=== PATIENT | male | born 1940 | race Caucasian/White ===

== ENCOUNTER 2017-03-21 17:22 | Inpatient (IN) | payer MEDICARE ==
[~2017-03-21] VITALS: Ht 175.3 cm; Wt 76.8 kg
[2017-03-21] MEDS ORDERED: MEMANTINE HCL10 MG PO (19:09)
[2017-03-21] MEDS ORDERED: LIPITOR40 MG PO (19:10)
[2017-03-21] MEDS ORDERED: SYNTHROID75 MCG PO (19:11)
[2017-03-21] MEDS ORDERED: OXCARBAZEPINE300 MG PO (19:13)
[2017-03-21] MEDS ORDERED: CITALOPRAM HBR20 MG PO (19:14)
[2017-03-21] MEDS ORDERED: ARICEPT10 MG PO (19:14)
--- NOTE | 2017-03-21 23:46 | NUR ---
PATIENT ARRIVED TO THE FLOOR AROUND 2330. PATIENT IS A POOR HISTORIAN. PATIENT IS VERY PAINFUL WITH MOVEMENT. PATIENT DENIES ANY PAIN AT THIS TIME. PATIENTS BED ALARM IS ON FOR SAFETY. PATIENT ORIENTED TOP FLOOR AND ROOM. ED PACKET GIVEN.
--- NOTE | 2017-03-22 01:17 | NUR ---
PT IS SLEEPING AT THIS TIME.
--- NOTE | 2017-03-22 04:04 | NUR ---
PT IS SLEEPING AT THIS TIME.
--- NOTE | 2017-03-22 05:07 | NUR ---
PT HAS BEEN SLEEPING SINCE ARRIVAL ON THE FLOOR. PT HAS NOT NEEDED ANY PAIN MEDICATION SINCE ARRIVAL ON THE FLOOR. IV NS AT 75ML/HR IS RUNNING. PT CANNOT MOVE ON HIS OWN AND NEEDS TO BE RE-ADJUSTED IN BED AND TURNED MUCH HE CAN TOLERATE.
--- NOTE | 2017-03-22 07:31 | NUR ---
RECIVEVED BEDSIDE REPORT FROM JAGDISH MARIE. PT SLEEPING, BREATHING EVEN AND UNLABORED.
--- NOTE | 2017-03-22 08:57 | NUR ---
PT AWAKE AND ALERT IN BED. ATE SMALL AMT OF BREAKFAST. PT STATES PAIN WITH MOVEMENT IN RIGHT HIP. HE IS ABLE TO TELL ME HE TRIPED AND HURT HIS HIP A DAY OR TWO AGO. NO COMPLAINTS OF PAIN OR NAUSEA AT THIS TIME.
--- NOTE | 2017-03-22 09:27 | NUR ---
ASSISTED PHYSICAL THERAPIST WITH ATTEMPTING TO STAND PATIENT AT THE BEDSIDE. UNSUCCESFUL ATTEMPT. PT DOES NOT TOLERATE WEIGHT BEARING TO RIGHT HIP. TURN Q2 INITIATED BY FESTUS DUBON.
--- NOTE | 2017-03-22 11:06 | NUR ---
PT IS SLEEPING IN CHAIR, BREATHING EVEN AND UNLABORED. DAUGHTER AT BEDSIDE.
--- NOTE | 2017-03-22 16:21 | NUR ---
REPOSITIONED PT IN BED, ASSISTED WITH ORAL CARE. PT IS ALERT AT THIS TIME.
--- NOTE | 2017-03-22 17:22 | NUR ---
PT UNABLE TO BEAR WEIGHT IN PHYSICAL THERAPY. PT IS FÁTIMA LIFT. PT NOT C/O PAIN, PRN PAIN MEDS X1. PT TOLERATING SMALL MEALS WELL. PT CONFUSED, FAMILY STATES MUCH IMPROVED SINCE LAST NIGHT. PT ALERT AND ORIENTANTED TO SOME RECENT EVENTS, KNOWS HE TRIPPED AND FELL, AND IS AT A CARE FACILITY. PT IS PLESANT AND COOPERATIVE WITH CARES.
--- NOTE | 2017-03-22 20:26 | NUR ---
IN TO SEE PT, PT AWAKE AND PICKING AT HIS CHAMORRO. PT REASSURED REGARDING CHAMORRO PLACEMENT. PT WATCHING TV. IV INTACT AND INFUSING. PT STATES HE HIS HUNGRY AND WOULD LIKE SOMETHING SOFT. PT STATES THAT HIS PAIN IS"MUCH BETTER" NOW. PUDDING GIVEN. CALL LIGHT IN PLACE.
--- NOTE | 2017-03-22 20:45 | NUR ---
IN TO SEE PT, IV IN R AC DC'D BY PT. IVF STOPPED AND DRESSING APPLIED. CALL LIGHT WITHIN REACH.
--- NOTE | 2017-03-22 23:42 | NUR ---
IN TO CHECK ON PT, PT HAS IV TUBING IN HAND, BLANKETS OFF. PT CONFUSED ABOUT ABOUT WHERE TO PLACE IV TUBING. RAMÓN APPLIED TO IV SITE. PT REORIENTED ABOUT NEED FOR IV. PT COVERED AND CALL LIGHT WITHIN PLACE.
--- NOTE | 2017-03-23 01:22 | NUR ---
IN TO CHECK ON PT, PT APPEARS TO BE RESTING, LIGHTS ON, IV INTACT AND INFUSING, CALL LIGHT WITHIN REACH.
--- NOTE | 2017-03-23 02:48 | NUR ---
IN TO SEE PT, PT AWAKE WATCHING TV. REQUEST GOWN, GOWN GIVEN. ASSESSED FOR PAIN, PT STATES HE IS NOT HAVING ANY PAIN AT THIS TIME. CHAMORRO DRAINED. IV INTACT AND INFUSING. NO FURTHER NEEDS AT THIS TIME, CALL LIGHT WITHIN REACH.
--- NOTE | 2017-03-23 03:40 | NUR ---
IN TO CHECK ON PT, IVF REPLACED, IV INTACT AND INFUSING. PT AWAKE AND WATCHING TV. WATER GIVEN. CALL LIGHT WITHIN REACH.
--- NOTE | 2017-03-23 04:57 | NUR ---
PT HAS RESTED ON AND OFF THROUGH OUT THE NIGHT.PT HAS BEEN PLEASENTLY CONFUSED, BUT EASILY REDIRECTED. INITIAL IV SITE DC'D BY PT IN THE BEGINNING OF SHIFT, NEW SITE PLACED IN THE L FORARM. NO C/O PAIN DURING THE SHIFT. PT IS UNABLE TO BEAR WEIGHT AND IS A FÁTIMA LIFT.
--- NOTE | 2017-03-23 07:35 | NUR ---
RECIEVED BEDSIDE REPORT FROM JAGDISH EARLY AND JAVI RN. PT AWAKE AND ALERT IN BED. PT REPOSITIONED. IV FLUIDS RUNNING.
--- NOTE | 2017-03-23 08:41 | NUR ---
2 person assist with pramod to comode then to chair. sitting up eating breakfast with call button in reach. chair alarm on.
--- NOTE | 2017-03-23 09:05 | NUR ---
PT HOYERED TO BSC AND CHAIR. PT TOLERATED WELL. PT EATING BREAKFAST, EATING WELL AFTER REDIRECTION. PT STATED HE "HAD A ROUGH NIGHT", WAKING UP FREQUENTLY.
--- NOTE | 2017-03-23 11:11 | NUR ---
PT SNOOZING IN CHAIR. STATES NO PAIN AT THIS TIME.
--- NOTE | 2017-03-23 11:35 | NUR ---
PT SITTING IN CHAIR-WELCOMED ME IN TO HIS RM. HE SAID THAT PAIN HAS NOT BAD YESTERDAY, AND THEN BEGAN TO RAMBLE. OFTEN HIS SENTENCES DID NOT MAKE MUCH SENSE, BUT SEEMED CONTENT. HE MENTIONED THAT THE NURSES WERE TAKING GOOD CARE OF HIM. PT STATED THAT HE HAS BEEN PRAYING A LOT LATELY, BUT DECLINED TO HAVE ME PRAY FOR HIM. WILL FOLLOW NEEDED
--- NOTE | 2017-03-23 12:30 | NUR ---
adjusted patient in chair sitting up eating lunch and drinking an ensure. call button in reach. chair alarm on.
--- NOTE | 2017-03-23 12:54 | NUR ---
PT TRANSFERED BACK TO BED. VOIDED 225ML IN URINAL. PT REQUESTED PAIN PILL, 1 NORCO GIVEN.
--- NOTE | 2017-03-23 14:15 | NUR ---
2 person assist to bed from chair with pramod lift. patient turned on right bed alarm on. call button in reach.
--- NOTE | 2017-03-23 14:17 | NUR ---
PT TRANSFERED BACK TO BED, TOLERATED WELL. PT FÁTIMA LIFT.
--- NOTE | 2017-03-23 14:35 | NUR ---
CALLED PT SON ARCHIE AT [phone], NO ANSWER, MESSAGE LEFT
[2017-03-23] MEDS ORDERED: MULTI VITAMIN1 EACH PO (17:05)
[2017-03-23] MEDS ORDERED: ASPIR 8181 MG PO (17:05)
--- NOTE | 2017-03-23 17:06 | NUR ---
MED REC COMPLETE--PER FAMILY
--- NOTE | 2017-03-23 17:29 | NUR ---
PT UP TO BEDSIDE COMMODE, NO BM THIS SHIFT. CHAMORRO DRAINING WELL. PT FÁTIMA LIFT, UP TO CHAIR THIS SHIFT. PT STATES PAIN IS "MUCH BETTER" THIS SHIFT. PRN PAIN MEDS X2, EFFECTIVE. PT CONFUSED AND FORGETFUL, EASILY REDIRECTS. NO BRUISING ON R HIP, SKIN INTACT.
--- NOTE | 2017-03-23 21:13 | NUR ---
PT ASSESSMENT COMPLETE. PT CONFUSED, PLEASANT AND COOPERATIVE. FAMILY FRIEND VISITING PT. IV FLUIDS INFUSING WITHOUT DIFFICULTY. PT STATES "MY PAIN IS GOOD, THEY GAVE ME SOMETHING EARLIER". NO BRUISING NOTED TO RIGHT HIP. PT ON ROOM AIR, DENIES ANY SOB AT THIS TIME. CALL LIGHT WITHIN REACH. PT DENIES ANY FURTHER NEEDS AT THIS TIME.
--- NOTE | 2017-03-23 23:02 | NUR ---
SON HERE TO VISIT, DISCUSSED SIGNING THE CONSENT FOR SURGERY TOMORROW PT NOT ALERT AND ORIENTED ENOUGH TO MAKE THAT DECISION. SON DOES NOT WANT TO SIGN UNTIL HE FINDS OUT MORE INFORMATION ON PT INSURANCE THROUGH [employer], SON WILL CALL HER IN THE AM. SON STATES HE WAS UNAWARE THAT SURGERY WAS BEING SCHEDULED.
--- NOTE | 2017-03-23 23:30 | NUR ---
PT SLEEPING, RR EVEN AND UNLABORED. IV FLUIDS INFUSING WITHOUT DIFFICULTY. PT APPEARS COMFORTABLE AT THIS TIME. CALL LIGHT WITHIN REACH.
--- NOTE | 2017-03-24 02:59 | NUR ---
PT PULLED OUT CHAMORRO CATHETER WITH BALLOON FILLED. BLOOD IN URINE, BLOOD OOZING FROM PENIS. PT HAD BLOOD ALL OVER HANDS AND GOWN. CLEANED PT UP. PT CONFUSED, ORIENTED TO SELF ONLY. REPOSITIONED PT. IV FLUIDS INFUSING WITHOUT DIFFICULTY. ATTENDS IN PLACE. WILL MONITOR URINE OUTPUT CLOSELY. PT C/O PAIN, IV DILAUDID GIVEN PT NPO FOR SURGERY. CURTAINS OPEN FOR CLOSE MONITORING, BED ALARM IN PLACE. CALL LIGHT WITHIN REACH.
--- NOTE | 2017-03-24 07:04 | CONS ---
[facility] [address] [place], [place] [address] Signed HISTORY OF PRESENT ILLNESS: Mr. Benjamin is a 76-year-old white male who apparently suffers from fairly significant dementia. He presented to the emergency room over the weekend having had a fall a day or two earlier. Because of ongoing pain and difficulty ambulating, he was examined. He was thought to have a nondisplaced basicervical fracture of the right hip. He was admitted to the hospitalist service because of significant hyponatremia. This has now been rectified and Orthopedic consultation was requested. PHYSICAL EXAMINATION: GENERAL: He is a significantly confused but otherwise very pleasant elderly gentleman in no acute distress. HEAD, EARS, EYES, NOSE, AND THROAT: Does not seem to reveal any evidence of craniofacial trauma. CHEST: Clear. He seems to have a regular heartbeat. EXTREMITIES: Examination of the right lower extremity reveals discomfort with attempts to move the right lower extremity and he localizes to the right groin. He has a positive Stinchfield maneuver. NEUROVASCULAR: Examination of the lower extremity seems unremarkable. X-RAYS: His x-rays and CT scan are reviewed. I am unable to appreciate that he has a basicervical fracture, although he does appear to have a valgus impacted subcapital fracture. I discussed with him that this is currently minimally displaced and is nicely impacted into valgus, but these frequently are not stable. I told him as such, our general recommendation is to stabilize these surgically. We have attempted to outline the potential risks and complications associated with this intervention, and he seems comfortable with proceeding. I have discussed this with Dr. Person who feels he should be ready to go by morning time. We will keep him n.p.o. after midnight and h old his Lovenox. I would also like to obtain an interview with his family member. My sense is that if he does not have a family member who has a POA, that should be put in other words as he clearly is significantly confused. Vahe Nash MD [facility] Electronically Signed By: VAHE NASH MD 03/24/17 0704 PATIENT NAME: JEAN-PIERRE BENJAMIN CONSULTATION DATE OF : 38 PHYSICIAN: VAHE NASH MD REPORT #: [id number] REPORT IS CONFIDENTIAL AND NOT TO BE RELEASED WITHOUT AUTHORIZATION [address] [place], [place] [address] Signed /[id number] Electronically Signed By: VAHE NASH MD 03/24/17 0704 PATIENT NAME: JEAN-PIERRE BENJAMIN CONSULTATION DATE OF : 38 PHYSICIAN: VAHE NASH MD REPORT #: [id number] REPORT IS CONFIDENTIAL AND NOT TO BE RELEASED WITHOUT AUTHORIZATION
--- NOTE | 2017-03-24 07:39 | NUR ---
CALL PLACED TO DR SCOTT AND RECIEVED ORDER TO REPLACE CHAMORRO CATH, DC DILAUDID, MORPHINE FOR PAIN. CHAMORRO CATHETER REPLACED AT THIS TIME, OBTAINED 1400ML RED/YELLOW URINE WITH CLOTS. MORPHINE 4MG IV GIVEN, PT CALMED DOWN AND IS RESTING QUIETLY AT THIS TIME.
--- NOTE | 2017-03-24 07:48 | NUR ---
RECIEVED BEDSIDE REPORT FROM JAGDISH MOY. PT AWAKE AND ALERT IN HIS BED, VERY FIDGETY AND ANXIOUS. REPORTED THAT HE HAD A ROUGH NIGHT. REPLACED CHAMORRO FOR 1400ML OUT. PT BECAME MUCH MORE RELAXED.
--- NOTE | 2017-03-24 08:05 | NUR ---
peterson cath care done. cleaned fingers and hands. washed face. oral care done patient very tender in the mouth. dentures out soaking in bathroom. will give full bed bath and linen change before surgery. patient resting in bed with eyes closed no other needs at this time. side rails up and bed down with alarm on.
--- NOTE | 2017-03-24 09:04 | NUR ---
OR CHARGE NURSE CALLED TO CONFIRM LOVENOX WAS HELD FOR PT. CONFIRMED IT WAS.
--- NOTE | 2017-03-24 10:34 | NUR ---
PT ROUSES TO ACTVITY, EASILY FALLS BACK TO SLEEP. IN NO APPEARNT DISTRESS.
--- NOTE | 2017-03-24 12:08 | NUR ---
PT RESTING IN BED. HE IS ALERT, NOT VERY ORIENTED, BUT VERY FRIENDLY. HE GAVE ME A BIG TOOTHLESS GRIN AND INVITED ME IN BY NAME. PT IS SCHEDULED FOR SURGERY @1400 HRS TODAY. WE SHOOK HANDS, WILL CONTINUE TO FOLLOW
--- NOTE | 2017-03-24 12:16 | NUR ---
CALLED AGAIN LEFT MESSAGE FOR SON TO CALL THERE AGAIN WAS NO ANSWER.
--- NOTE | 2017-03-24 12:32 | NUR ---
PT SON ARCHIE CALLED AND WAS CONCERNED ABOUT PT INSURANCE AND WHAT EXACTLY IT WOULD COVER. WERNER SAID THAT IT WOULD COVER THE EMERGENCY BUT THE OUTPT THINGS IT WOULD BE OUT OF NETWORK AND IT WON'T COVER THAT. LON ASK IS TO SEE IF THE PT HAS MEDICARE THAT WILL IRRIGATION SUPERVISOR AFTER THE WERNER. I TOLD HIM I WOULD CHECK INTO THIS FOR HIM, ALSO SEE IF WE COULD GET PT POSS SIGNED UP FOR MEDICAID PRESUMPTIVE CARE. ATTEMPTED TO CALL SAY FROM THAT DEPARTMENT AND MESSAGE LEFT FOR HER TO CALL ME.
--- NOTE | 2017-03-24 12:40 | NUR ---
SPOKE WITH SON/POA REGARDING SIGNING CONSENT FOR SURGERY. ARCHIE WILL BE IN TO SIGN CONSENT IN 15-20 MIN. HE IS STILL CONCERNED ABOUT INSURANCE AND BILLING.
--- NOTE | 2017-03-24 13:00 | NUR ---
CALLED AND SPOKE WITH DR SCOTT PT IS AGAIN TRYING TO PULL IV AND CHAMORRO CATHETER OUT. PT IS PLEASANT AND COOPERATIVE BUT VERY FORGETFUL AND FORGETS WHAT TUBING IS AND TRIES TO PULL OUT.RECIEVED ORDER TO USE SOFT WRIST RESTRAINTS FOR PT SAFETY. PLACED AT THIS TIME.
--- NOTE | 2017-03-24 13:05 | NUR ---
WALKED IN TO ROOM PATIENT PULLING ON CHAMORRO CATH. STAFF IN ROOM TO CLEAN UP. LINENS CHANGED PERICARE DONE. SHAVE.
--- NOTE | 2017-03-24 13:10 | NUR ---
SON IS HERE ADDRESS CONSENT FOR SURGERY. OR CREW HERE TO TAKE TO SURGERY.
--- NOTE | 2017-03-24 15:20 | NUR ---
03/24/17 1520 Brien Issa 1517: PT AWOKE AND STATES "IT HURTS". SEE EMAR.
--- NOTE | 2017-03-24 16:30 | NUR ---
RECIEVED BEDSIDE REPORT FROM SURGERY NURSE JAGDISH FRIED. PT RETURNED SLEEPING, WAKES TO TOUCH AND GOES BACK TO SLEEP. PT RECIEVING O2 VIA NASAL CANULA DUE TO LOW SATS ON ROOM AIR. TOLERATING WELL. PER DR SCOTT, KEEP PT IN SOFT RESTRAINTS DUE TO PULLING ON LINES AND PICKING AT DRESSING. PT TOLERATING WELL. DRESSING ON R HIP IS C/D/I WITH ICE PACK IN PLACE. PULSES INTACT.
--- NOTE | 2017-03-24 17:46 | NUR ---
PT WENT TO SURGERY TO REPAIR R HIP FRACTURE. PRIOR TO SURGERY, PT WAS VERY AGITATED, PULLING ON CHAMORRO AND PICKING AT IV. RESTRAINTS ORDERED PER DR. SCOTT TO PREVENT PULLING CHAMORRO OUT AGIAN. POST OP RESTRAINTS ORDERED WELL TO PREVENT PULLING ON LINES. HIP DRESSING C/D/I WITH ICE PACK IN PLACE. VSS.
--- NOTE | 2017-03-24 18:01 | NUR ---
PATIENT RESTING IN BED WITH EYES CLOSED.
--- NOTE | 2017-03-24 19:42 | NUR ---
RECEIVED REPORT FROM DAY SHIFT RN. PATIENT IS RESTING IN BED WTIH EYES CLOSED. PATIENT IS ON A PULSE OX AND READINGS ARE WNL. PATIENT IS ON 2L VIA NC. PATIENTS BREATHING IS EVEN AND UNLABORED. PATIENT HAS RESTRAINTS ON. RESTRAINT CHECK COMPLETED. CALL LIGHT IN REACH. BED ALARM IS ON.
--- NOTE | 2017-03-24 22:11 | NUR ---
PATIENT ASSESMENT COMPLETED. POST OP VITALS COMPLETED AND RECORDED. PATIENTS RESTRAINTS ASSESED AND RECORDED. PATIENTS FED BROTH. PATIENT DENIES ANY PAIN AT THIS TIME. PATIENT HAS A NEW ICE PACK PLACED ON RIGHT HIP. PATIENTS DRESSING ON RIGHT HIP IS C/D/I. PATIENTS FAMILY IS IN THE ROOM VISITING. PATIENT IS DROWSY BUT EASY TO AWAKEN. PATIENTS BED ALARM IS ON AND CALL LIGHT IS WITHIN REACH.
--- NOTE | 2017-03-24 22:12 | NUR ---
NURSE NOTIFIED RE AIMEEP.
--- NOTE | 2017-03-25 00:22 | NUR ---
RESTAINS EVALAUATED, PATIENT DENIES THE NEED TO EAT OR DRINK. PATIENT DENIES ANY PAIN. RESTARINT EVALUATION DOCUMENTED.
--- NOTE | 2017-03-25 01:56 | NUR ---
VITALS TAKEN AND RECORDED. PATIENT DENIES ANY PAIN. PATIENT GIVEN 0200 SCHEDULED MEDICATION PER ORDER. PATIENTS RESTRAINTS CHECKED AND RECORDED. PATIENT CONTINUES TO BE ON PULSE OX TITRATED DOWN TO 1L VIA NC. BED ALARM ON AND CALL LIGHT IN REACH.
--- NOTE | 2017-03-25 03:16 | NUR ---
PATIENT BECAME INCREASINGLY AGITATED AND RESTLESS IN BED. WHEN ASKED ABOUT PAIN PATIENT SHAKES HEAD "YES" PATIENT GIVEN PRN PAIN MEDICATION PER ORDER. CALL LIGHT IS WITHIN REACH. PULSE OX READINGS ARE WNL.
--- NOTE | 2017-03-25 03:38 | NUR ---
RESTRAINTS ASSESED AND RECORDED. PATIENT DENIES THE NEED FOR WATER, FOOD, OR TOILET.
--- NOTE | 2017-03-25 05:05 | NUR ---
PATIENT RESTED WELL THROUGHOUT THE SHIFT. PATIENT ATE BROTH. PATIENT WAS ABLE TO BE TITRATED OFF OF O2. PATIENT IS ON REG DIET THAT IS ADVANCE TOLERATED. PATIENT HAS A CHAMORRO IN PLACE. PATIENT HAS ON SCDS. [ATIENT IS ON A PULSE OX. PATIENT HAS HEEL PROTECTORS ON. PATIENT IS IN SOFT WRIST RESTRAINTS ORDERED BY THE MD. PATIENT RECEIVED X1 PRN PAIN MEDICATION. PATIENT HAS SCHEDULED TYLENOL. PATIENT IS FORGETFUL AND ANXIOUS AT TIMES.
--- NOTE | 2017-03-25 05:23 | NUR ---
PATIENTS GOEN CHANGED, CECILIA CARE, AND CATH CARE PERFORMED. PATIENT DENIES ANY PAIN AT THIS TIME. RESTRAINTS CHECKED AND DOCUMENTED. PATIENT GIVEN DRINKS OF WATER. PATIENT DENIES ANY FURTHER NEEDS. CALL LIGHT IN REACH.
--- NOTE | 2017-03-25 06:36 | NUR ---
PATIENTS MORNING MEDICATIONS GIVEN PER ORDER. PATIENT GIVEN PO PRN PAIN FOR PAIN IN HIS RIGHT HIP. PATIENT REMAINS IN RESTRAINTS. RESTRAINTS EVALUATED AND RECORDED.
--- NOTE | 2017-03-25 06:50 | NUR ---
PLACED A CALL TO MD ABOUT PATIENTS LOW URINE OUTPUT. NO NEW ORDERS AT THIS TIME.
--- NOTE | 2017-03-25 08:30 | NUR ---
PT AWAKE SITTING UP IN BED. ORIENTED TO SELF ONLY. DENIES PAIN OR NAUSEA AT THIS TIME. PT KEEPS PULLING AT RESTRAINTS AND ASKING WHY THEY ARE ON. EXPLAINED TO PT THAT THEY ARE THERE FOR HIS OWN SAFETY. HAVE TO REPEAT TO THIS PT FREQUENTLY D/T DEMENTIA. RIGHT HIP DRESSING CDI, NO SHADOWING OR DRAINAGE NOTED. CHAMORRO PATENT PUTTING OUT YELLOW URINE. SCANT AMOUNT OF RED DRAINAGE NOTED AT MEATUS. RESTRAINTS IN PROPER PLACE, CMS INTACT, NO BRUISING OR SKIN BREAKDOWN NOTED.
--- NOTE | 2017-03-25 08:53 | NUR ---
PATIENT RESTING AWAKE IN BED. HE STILL HAS WRIST RESTRAINTS. I HAD HIM RINSE OUT HIS MOUTH BEFORE PLACING DENTURES. NURSE PHYLLIS WAS GIVING MORNING MEDICATIONS.
--- NOTE | 2017-03-25 11:26 | NUR ---
PT RESTING IN BED, EYES CLOSED, RESP EVEN AND UNLABORED. RESTRAINTS ON AND REASSESED.
--- NOTE | 2017-03-25 12:11 | NUR ---
RESPONDED TO PT CALLING FOR HELP. CHECKED, HE WAS UNHAPPY WITH SOFT RESTRAINTS PLACED FOR HIS SAFETY. I TOLD HIM I WOULD TELL HIS NURSE, WHICH I DID. THAT SEEMED TO CALM HIM, AND DROPPED OFF TO SLEEP. I WILL CONTINUE TO FOLLOW
--- NOTE | 2017-03-25 13:24 | NUR ---
PT CALLING OUT AT NURSES STATION SAYING "HEY!". ASKS TO HAVE RESTRAINTS REMOVED. REMINDED THAT RESTRAINTS ARE ON FOR HIS SAFETY AFTER PULLING CHAMORRO A COUPLE TIMES AND CAUSING INJURY. GIVEN SIPS OF WATER. RIGHT HIP DRESSING CDI.
--- NOTE | 2017-03-25 14:45 | NUR ---
PT IN BED SHAKING AND STATING HE IS IN A LOT OF PAIN. MEDICATED WITH PRN OXY. GIVEN SIPS OF WATER, RESTRAINTS REASSESSED.
--- NOTE | 2017-03-25 15:55 | NUR ---
ADENIKE IN PHYSICAL THERAPY CALLED FOR ASSISTANCE IN GETTING PATIENT UP. I CAME IN TO HELP AND PATIENT WAS UNABLE TO GET OUT OF BED DUE TO PAIN. I DID CATH CARE AND GOT HIM FRESH ICE WATER.
--- NOTE | 2017-03-25 17:35 | NUR ---
PT ASSISTED TO EAT DINNER, ATE SMALL AMOUNT. PT REQUIRES ENCOURAGMENT TO SWALLOW FOOD D/T DEMENTIA. RESTRAINTS REASSESSED. PT DOES NOT APPEAR TO BE IN PAIN AT THIS TIME. RESTING IN BED CALMLY, NO FIDETING OR ATTEMPT AT PICKING OR PULLING TUBES.
--- NOTE | 2017-03-25 19:56 | NUR ---
RECEIVED REPORT FROM DAY SHIFT RN. PATIENT IS RESTING IN BED IN SOFT WRIST RESTRAINTS. PATIENT DID GET RESTRAINTS LOOSE AND HAD AHOLD OF CHAMORRO. PATIENT WAS NOT ABLE TO PULL CHAMORRO OUT. PATIENT GIVEN PRN PAIN MEDICATION FOR OUTWARD SIGNS OF PAIN SUCH RESTLESSNES, FACIAL GRIMACING, AND MOANING.
--- NOTE | 2017-03-25 22:13 | NUR ---
PATIENT ASSESMENT COMPLETED. PATIENT IS RESTING IN BED LOOKING AROUND. PATIENTS EVENING MEDICATIONS GIVEN PER ORDER. PATIENTS RESTRAINTS UNDONE. PATIENT GIVEN DRINKS. PATIENTS SKINS AND SMS ARE INTACT. RETRAINT ASSESMENT DOCUMENTED. PATIENTS RESTRAINTS PLACED BACK ON PER ORDER. PATIENTS MEATUS CONTINUES TO HAVE MINIMAL DRAINAGE. CECILIA CARE PERFORMED. PATIENTS DENTURES REMOVED AND PLACED IN A CONTAINER. ORAL CARE PERFORMED. PATIENT REMAINS ON A PULSE OX AND READINGS ARE WNL. PATIENT DENIES BEING HUNGRY. PATIENT IS ONLY OREINTED TO SELF. PATIENT HAS A CHAMORRO IN PLACE. PATIENT HAS SCDS AND HEEL PROTECTORS. PATIENTS DRESSING ON HIS RIGHT HIP IS C/D/I. APPLIED NEW ICE PACK TO PATIENTS RIGHT HIP PER ORDER. CALL LIGHT IS WITHIN REACH.
--- NOTE | 2017-03-25 23:22 | NUR ---
PATIENTS HANDS UNTIED FRO RESTRAINTS. PATIENT WAS ABLE TO EAT X3 PUDDINGS. PATIENT REPOSITIONED IN BED. PATIENT ABLE TO DRINK WATER. PATIENT COMPLAINS OF "HURTING" PATIENT GIVEN PRN PAIN MEDICATION PER ORDER. PATIENTS CONTNIUES TO PULL AT CHAMORRO, OXYGEN, AND IV TUBING. PATIENT REQUIRES FREQUENT REORIENTATION AND REMINDERS TO NOT PULL AT TUBING. PATIENT SKIN AND CMS INTACT. PATIENT RESTRAINTS REAPPLIED PER ORDER. PATIENTS RESTRAINTS WERE REMOVED FOR A TOTAL OF 45 MINUTES AND STAFF WAS WITH PATIENT THE WHOLE TIME FOR SAFETY. PATIENT DENIES ANY FURTHER NEEDS. CALL LIGHT IS WITHIN REACH. PATIENT REMAINS ONLY OREINTED TO SELF
--- NOTE | 2017-03-26 01:17 | NUR ---
PATIENT IS RESTING IN BED WITH EYES CLOSED. PULSE OX READINGS ARE WNL.
--- NOTE | 2017-03-26 02:57 | NUR ---
PATIENT BECAME INCREASINGLY RESTLESS IN BED. PATIENT REPOSITIONED IN BED. PATIENT GIVEN SCHEDULED TYLENOL AND PRN PAIN MEDICATION PER ORDER. PATIENTS RESTRAINTS REASSESED. PATIENTS SKIN ASSESSED AND IT IS INTACT ALONG WITH CMS. PATIENT REMAINS ON 1L VIA NC. PATIENTS PULSE OX READINGS ARE WNL. PATIENT ABLE TO DRINK WATER. CALL LIGHT IN REACH.
--- NOTE | 2017-03-26 04:47 | NUR ---
PATIENT GIVEN A DRINK OF WATER. PATIENTS RESTRAINTS ASSESED AND DOCUMENTED. PATIENT DENIES ANY PAIN. CALL LIGHT IN REACH.
--- NOTE | 2017-03-26 05:29 | NUR ---
PATIENT RESTED WELL ON AND OFF THROUGHOUT THE SHIFT. PATIENT RECEIVED X3 PRN PAIN MEDICATION. PATIENT REMAINS IN SOFT RETRAINTS THAT ARE EVALUATED Q2HRS. PATIENT IS ON A PULSE OX. PATIENT HAS A CHAMORRO IN PLACE. PATIENT HAS SCDS AND HEEL PROTECTORS IN PLACE. PATIENTS DRESSING ON HIS RIGHT HIP IS C/D/I NO SHADOWING PRESENT. PATIENT IS ONLY ORIENTED TO SELF. PATIENT CONTINUES TO TRAY AND REMOVED ANY AND ALL TUBING. PATEINT HAS ICE PACK APPLIED TO RIGHT HIP. PATIENT IS ON A REG DIET AND TOLERATING WELL.
--- NOTE | 2017-03-26 06:18 | NUR ---
PATIENTS MORNING MEDICATIONS GIVEN PER ORDER. PATIENT DOES NOT SHOW ANYU OUTWARD SIGNS OF PAIN. PATEINT ALSO SHAKES HEAD "NO" WHEN ASKED ABOUT PAIN. APPLIED NEW ICE PACK TO PATIENTS RIGHT HIP. RESTRAINTS ASSESED AND DOCUMENTED. PATIENTS GOWN CHANGED AND CECILIA CARE PERFORMED. CALL LIGHT IN REACH.
--- NOTE | 2017-03-26 07:30 | NUR ---
PT AWAKE AT SHIFT CHANGE, HANDS UNTIED FOR MORNING CARES AND BREAKFAST. CMS INTACT ASSESSMENT UNREMARKABLE. PT TOLERATES BREAKFAST WELL. RESTRAINTS RETURNED
--- NOTE | 2017-03-26 09:00 | NUR ---
PT APPEARS TO BE SLEEPING AT THIS TIME. HANDS ARE WARM AND NORMALLY COLORED. PT APPEARS COMFORTABLE
--- NOTE | 2017-03-26 10:20 | NUR ---
PT UP AMBULATING WITH P/T
--- NOTE | 2017-03-26 10:45 | NUR ---
PHYSICAL THERAPIST ADENIKE IS IN PATIENTS ROOM GETTING READY TO GET PATIENT UP. I TOOK VITALS AND CHARTED I&OS WHILE SHE TOOK WRIST RESTRAINTS OFF. I ASSISTED ADENIKE IN GETTING PATIENT UP AND WALKING AROUND TO THE OTHER SIDE OF BED. CHAMORRO WAS BLEEDING SO I LET NURSE EVETTE KNOW. ADENIKE PUT WRIST RESTRAINTS BACK ON PATIENT. PATIENT SEEMED FLUSTERED SO NURSE SARAH IS NOW SITTING IN WITH PATIENT AND LET HIS ARMS LOOSE FOR AWHILE.
--- NOTE | 2017-03-26 10:55 | NUR ---
PT RELEASED FROM RESTRAINTS, STAFF ARE PRESENT 09/07 ASSISTING WITH SELF CARES. STAFF CONTINUE TO BE PRESENT WITH PT VISITING AND REORIENTING. PT IS UP BEAT AND TALKATIVE.
--- NOTE | 2017-03-26 12:21 | NUR ---
I CAME IN TO CHECK ON PATIENT. NURSE ALAS WAS GETTING READY TO GET HIM UP TO GO FOR A WALK. I ASSISTED DURING THE WALK. PATIENT WALKED FROM ONE SIDE OF THE BED TO THE OTHER AND THEN BACK. HIS CHAMORRO WAS BLEEDING SO WE CHANGED HIS SHEET AND GOWN. NURSE ALAS RETIED WRIST RESTRAINTS. CALL LIGHT WITHIN REACH.
--- NOTE | 2017-03-26 12:36 | NUR ---
DR TRACY IN TO SEE PT. PT UNRESTRAINED ASSISTED UP TO AMBULATE IN ROOM. GOWN CHANGED AND PT RETURNS TO RESTING IN BED. WELL TOLERATED.
--- NOTE | 2017-03-26 13:20 | NUR ---
DR RAUSCH IN TO SEE PT. RESTRAINTS REMOVED PT SITTING UPRIGHT IN BED STAFF SUPERVISION FOR LUNCH. PT DENIES HIP PAIN EXCEPT WITH MOVEMENT. MEDICATED ANTICIPATING P/T THIS AFTERNOON. PT CMS INTACT EXTREMITIES WARM AND UNREMARKABLE. PT FEEDING SELF
--- NOTE | 2017-03-26 14:12 | NUR ---
PT FREE FROM RESTRAINTS AGAIN, UP WORKING WITH P/T. RESTRAINTS ALL THROUGH CHARTING THIS SHIFT REFERS TO SOFT WRIST RESTRAINTS USED TO PREVENT PT FROM PULLING CHAMORRO CATH AGAIN. PT TOLERATING P/T WELL. MEDICATED FOR PAIN APPROX 45 MINUTES AGO
--- NOTE | 2017-03-26 16:00 | NUR ---
pt arms freed from restraints, assessment unremarkable. pt denies pain or needs of at this time. repositioned, h20 drank, returns to resting and restraints
--- NOTE | 2017-03-26 16:14 | NUR ---
CALLED PT SON THIS AM AND LEFT A MESSAGE FOR HIM TO CALL ME BACK. THIS AFTERNOON HE RETURNED MY CALL. WE DISCUSSED PLACEMENT OF HIS FATHER IN A PENITENTIARY HOME FOR PROB REHAB. HE SAID [facility] WOULD BE FINE.
--- NOTE | 2017-03-26 16:18 | NUR ---
CHART NOTES FAXED TO [facility] TODAY INCLUDING FACESHEET, ER NOTES, H AND P, OP NOTE, PROG NOTE, IMAGING, MEDS AND LAB, ALSO PT EVAL AND NOTES.
--- NOTE | 2017-03-26 18:05 | NUR ---
PT HAS BEEN LOOSE FROM RESTRAINTS SINCE 1699 STAFF STANDBY SUPERVISION PT SELF FEEDING AND REPOSITIONING IN BED. DENIES PAIN OR NEEDS OF. UPPER EXTREMITIES WARM WITH CMS INTACT NO S/S OF RESTRAINT ISSUE. PT IS COOPERATIVE AND UPBEAT
--- NOTE | 2017-03-26 18:25 | NUR ---
PT CONTINUES UNRESTRAINED AT THIS TIME RESTING EYES CLOSED
--- NOTE | 2017-03-26 19:07 | NUR ---
COLOR WEIGHER PLACED RESTRAINTS BACK ON PATIENT DURING CHANGE OF SHIFT REPORT. PATIENT WAS PULLING ON TUBING. WILL MONITOR PER PROTOCOL
--- NOTE | 2017-03-26 20:18 | NUR ---
RECEIVED REPORT FROM DAY SHIFT RN. PATIENT IS RESTING IN BED WITH EYES CLOSED BREATHING IS EVEN AND UINLABORED. CALL LIGHT IN REACH.
--- NOTE | 2017-03-26 22:58 | NUR ---
PATIENT ASSESMENT COMPLETED. PATIENTS EVENING MEDICATION GIVEN PER ORDER. PATIENT IS NOW SL PER ORDER. PATIENT DENIES THE NEED FOR PAIN MEDICATION. PATIENT GIVEN SCHEDULED TYLENOL. PATIENT CONTINUES TO TRY AND PULL ON CHAMORRO. PATIENT REMAINS IN RESTRAINTS. PATIENTS URINE OUTPUT IS QS. PATIENT GIVEN A DRINK OF WATER AND CHOCOLATE PUDDING. CALL LIGHT IS WITHIN REACH.
--- NOTE | 2017-03-27 00:21 | NUR ---
PATIENT IS RESTING IN BED WITH EYES CLOSED, RR 17
--- NOTE | 2017-03-27 02:43 | NUR ---
PATIENT GIVEN SCHEDULED TYLENOL PER ORDER. PATIENT IS BECOMING INCREASINGLY RESTLESS. PATIENT GIVEN PRN PAIN MEDICATION. RESTRAINTS REASSESED AND RECORDED. PATIENT DENIES ANY NEEDS. CALL LIGHT IS WITHIN REACH.
--- NOTE | 2017-03-27 04:28 | NUR ---
PATIENT GIVEN A DRINK OF WATER. PATIENT DENIES ANY PAIN AT THIS TIME. RESTRAINTS REASSESED AND RECORDED. CALL LIGHT IS WITHIN REACH.
--- NOTE | 2017-03-27 05:20 | NUR ---
PATIENT RESTED WELL THROUGHOUT THE SHIFT. PATIENT RECEIVED X1 PRN OXY. PATIENT HAS A CHAMORRO IN PLACE. PATIENT IS IN RETRAINTS PER ORDER. RESTRAINTS ARE REASSESED PER ORDER Q2HRS. PATIENT IS ONLY OREINTED TO SELF AT TIMES, BUT REORIENTS EASILY. PATIENT HAS SCDS AND HEEL PROTECTORS IN PLACE. PATIENT IS WEIGHT BEARING TOLERATED. PATIENT HAS ICE PACK APPLIED TO RIGHT HIP. PATIENT IS SL NOW. PATIENT IS ON A REG DIET AND TOLERATING WELL.
--- NOTE | 2017-03-27 06:14 | NUR ---
PATIENTS MORNING MEDICATIONS GIVEN PER ORDER. PATIENTS GOWN CHANGED. PATIENTS CECILIA AREA CLEANDED. PATIENT MEATUS CONTINUES TO HAVE A SMALL AMOUNT OF BLOODY DRAINAGE. RESTRAINTS REASSESED. NE ICE PACK PLACED ON PATIENTS RIGHT HIP. PATIENTS CALL LIGHT IS WITHIN REACH. PATIENT GIVEN A DRINK OF WATER.
--- NOTE | 2017-03-27 08:40 | NUR ---
PT UP TO BEDSIDE COMMODE FOR BM. PT ITCHING AT BACK. SOUND RECORDING TECHNICIAN'S APPLIED LOTION TO DRY SPOT.
--- NOTE | 2017-03-27 09:21 | NUR ---
PT NOT IN RESTRAINTS DURING BREAKFAST. FED SELF. UP TO BEDSIDE COMMODE FOR LARGE BM. PT REQUESTED TO SIT IN CHAIR. PLACED BACK IN RESTRAINTS. LARGE AMT OF BLOOD OUT OF END OF PENIS. NO BLOOD IN URINE.
--- NOTE | 2017-03-27 09:56 | NUR ---
PT USED BEDSIDE COMMODE THEN RETURNED TO CHAIR, PT DID NOT NEED ANYTHING ELSE AT THE MOMENT. PT DID AGREE TO SHOWER BUT WANTS TO WAIT UNTIL AFTER HE HAS WORKED WITH PHYSICAL THERAPY
--- NOTE | 2017-03-27 10:06 | NUR ---
PT UP TO BEDSIDE COMMODE AGAIN FOR LOOSE BM. CHANGED DEPENDS AND PANTS AND SWITCHED CHAMORRO BAG FOR A LEG BAG. PT UNRESTRAINED AT THIS TIME. CLOSELY MONITORED BY INDUSTRIAL MAINTENANCE ELECTRICIAN. BACK IN CHAIR.
--- NOTE | 2017-03-27 10:35 | NUR ---
TALKED TO [facility], THEY FAXED A WORKSHEET WHICH I FILLED OUT AND FAXED BACK TO THEM ALONG WITH CHART NOTES INCLUDING FACESHEET, ER NOTES, H AND P, OP NOTE, PROG NOTES, IMAGING, MEDS, LABS AND PT EVAL AND NOTES.
--- NOTE | 2017-03-27 12:09 | NUR ---
RECIEVED NOTIFICATION FROM [facility] THAT THEY RECIEVED PT CHART NOTES.
--- NOTE | 2017-03-27 14:24 | NUR ---
PT USED BEDSIDE COMMODE THEN RETURNED TO SIT IN CHAIR
--- NOTE | 2017-03-27 14:56 | NUR ---
PT UP TO THE BEDSIDE COMMODE. EMPTIED AND FLUSHED LEG BAG. PT REMAINS CONFUSED BUT EASILY REORIENTED.
--- NOTE | 2017-03-27 15:17 | NUR ---
PT CONTINUES TO LEAVE CHAMORRO ALONE SINCE SWITCHED TO LEG BAG. PT SITTING IN CHAIR PRESSING CALL LIGHT BUTTON, THINKS IT IS THE TV REMOTE. REORIENTED QUICKLY. DOESN'T LAST LONG.
--- NOTE | 2017-03-27 17:54 | NUR ---
PT SAT IN CHAIR MOST OF DAY. CHAMORRO CHANGED TO LEG BAG. RESTRAINTS REMOVED, HAS DONE WELL. LARGE CLOT AROUND CHAMORRO FROM PENIS. 2 LARGE BM AND ONE SMALL. OXY X2. SL. INCISION DRY AND WELL APPROX.
--- NOTE | 2017-03-27 17:56 | NUR ---
HELPED PT BACK TO BED, PT ASKED FOR MORE ICE WATER. PT REFUSED TO SHOWER TODAY
--- NOTE | 2017-03-27 19:50 | NUR ---
PT IS RESTING QUIETLY ON BED. APPEARS RELAXED. CHAMORRO IS CONNECTED TO LEG BAG. NO LONGER WEARING WRIST RESTRAINTS. CONT. TO MONITOR CLOSELY FOR PT SAFETY.
--- NOTE | 2017-03-27 21:20 | NUR ---
PT STOOD AT BEDSIDE AND HS CARES DONE, COOPERATIVE AND IN GOOD SPIRITS, HAS MADE NO ATTEMPTS TO PULL ON CHAMORRO OR REMOVE SL. CHAMORRO WITH LIGHT YELLOW URINE, LEG BAG IS SECURE. ASSISTED TO BED WITH CUP OF COFFEE PER PT REQUEST. C/O R THIGH ACHING. OXYCODONE 5MG GIVEN. CONT. TO MONITOR CLOSELY FOR PT SAFETY.
--- NOTE | 2017-03-28 | NUR ---
AWAKE, REPOSITIONED IN BED FOR COMFORT, CHAMORRO CATH PATENT TO LEG BAG- EMPTIED. PT IN GOOD SPIRITS, COOPERATIVE. WARM BLANKET FOR COMFORT. CONT. TO MONITOR CLOSELY FOR COMFORT.
--- NOTE | 2017-03-28 03:17 | NUR ---
ASLEEP, RESP EVEN AND UNLABORED.
--- NOTE | 2017-03-28 05:56 | NUR ---
PT WOKE TO TAKE SCHEDULED MEDICATION, DENEIS DISCOMFORT AT THIS TIME. NO ATTEMPTS TO PULL CHAMORRO. GOOD URINE OUTPUT INTO LEG BAG. WARM BLANKET. CALL LIGHT IN EASY REACH.
--- NOTE | 2017-03-28 07:20 | NUR ---
REPORT RECEIVED FROM JAGDISH MACKENZIE. PT DID WELL LAST NIGHT WITH NO EPISODES OF SEMAJ OF CATHETER.
--- NOTE | 2017-03-28 07:57 | NUR ---
PT SEEMS MORE CONFUSED THIS MORNING BUT REMAINS EASILY REORIENTED. UP TO CHAIR EATING BREAKFAST AND TOOK MORNING MEDS WO DIFF.
--- NOTE | 2017-03-28 10:13 | NUR ---
PT IS SITTING UP IN CHAIR WATCHING TV. CHAIR ALARM ON. PT AGREED TO SHOWER.
--- NOTE | 2017-03-28 10:54 | NUR ---
PT RESTING WITH EYES CLOSED IN CHAIR. TOLERATED BREAKFAST WELL.
--- NOTE | 2017-03-28 12:03 | NUR ---
PT HAS SHOWERED AND SHAVED AND IS NOW SITTING IN CHAIR WITH FEET UP
--- NOTE | 2017-03-28 12:12 | NUR ---
PT UP TO SHOWER WITH NOISE ABATEMENT ENGINEER. BACK IN CHAIR TO EAT LUNCH.
--- NOTE | 2017-03-28 13:36 | NUR ---
PT ATE 100% OF LUNCH. UP IN CHAIR WATCHING TV. TOLERATING WELL. REORIENTED TO REMOTE VS. CALL LIGHT.
--- NOTE | 2017-03-28 14:23 | NUR ---
PT FELL OUT OF CHAIR PT WAS CHECKED BY NURSE AND THEN ASSISTED TOBED AND VITALS TAKEN. BED ALARM ON
--- NOTE | 2017-03-28 14:29 | NUR ---
PT WAS SITTING IN CHAIR AND TIPPED FORWARD ONTO HIS KNEES ON THE FLOOR THEN SIDEWAYS ONTO THE FLOOR. MERY DUBON WITNESSED ON WAY INTO ROOM. PT DENIES PAIN OR DISCOMFORT OTHER THAN THE QUAD MUSCLE DISCOMFORT HE HAS BEEN HAVING FOR THE LAST WEEK SINCE SURGERY. NOTIFIED DR KOLB, DR LOMELI AND MAINTENANCE WORKER SWIMMING POOL EMELIA. NO NEW ORDERS. PT WAS HELPED UP AND WAS ABLE TO AMBULATE USING FWW TO BED. CHAIR ALARM WAS ON PT BUT HAD BEEN TURNED OFF. BED ALARM NOW ON. EXAMINED PT, NO NEW REDNESS OR HERNANDEZ NOTED.
--- NOTE | 2017-03-28 14:41 | NUR ---
ADMINISTERED SCHEDULED TYLENOL AND OXY. RATES PAIN @ 4\10, DESCRIBES MUSCLE PAIN.
--- NOTE | 2017-03-28 16:26 | NUR ---
REASSESSED PAIN. PT RATES LOW AT 1-2. PT WATCHING TV AND FIDDLING WITH A COMB.
--- NOTE | 2017-03-28 18:08 | NUR ---
PT UP IN CHAIR MOST OF DAY. FELL FOWARD OUT OF IT. DENIES PAIN OR INJURY. INCISION SITE DRY AND APPROX. HAD BM AND SHOWER. OXY X2. TOLERATING LEG BAG CHAMORRO WELL.
--- NOTE | 2017-03-28 19:05 | NUR ---
BEDSIDE REPORT RECEIVED FROM OFFGOING NURSE. PT LYING IN BED. DENIES NEEDS AT THIS TIEM. CALL LIGHT WITHIN REACH, BED ALARM IN PLACE.
--- NOTE | 2017-03-28 19:56 | NUR ---
PT ASSESSMENT COMPLETED. PT RATES PAIN TO R HIP "08/16". PRN PAIN MEDICATION GIVEN. PT DENIES OTHER NEEDS. CALL LIGHT WITHIN REACH.
--- NOTE | 2017-03-28 23:51 | NUR ---
PT RESTING IN BED WITH EYES CLOSED. RESPIRATIONS ARE EVEN AND UNLABORED. PT APPEARS TO BE SLEEPING. CURTAIN OPEN, PT IN VIEW OF NURSES STATION. CALL LIGHT WITHIN REACH.
--- NOTE | 2017-03-29 02:25 | NUR ---
PT ASSESSMENT COMPLETED. PT RESTING IN BED WITH EYES CLOSED, WAKES EASILY. PT DENIES PAIN. ABLE TO READJUST HIMSELF IN BED WITHOUT ASSISTANCE. PT DECLINES TO TAKE DENTURES OUT WHEN ASKED, STATES "I SAID NO!". PT DENIES NEEDS AT THIS TIME. CALL LIGHT WITHIN REACH.
--- NOTE | 2017-03-29 04:33 | NUR ---
PT RESTING IN BED, SLEEPING THROUGOUT MOST OF THE SHIFT. PT REQUIRED MINIMAL REORIENTATION/REDIRECTION. PRN PAIN MEDICATION GIVEN AT BEGINNING OF SHIFT FOR "12/10" PAIN TO R HIP. R HIP INCISION SITE C/D/I, ROMELIA. LEG BAG IN PLACE WITH ATTENDS, AND SCRUB PANTS PLACED BACKWARDS. PT TOLERATING WELL, NO FURTHER ATTEMPTS TO DISLODGE CHAMORRO CATH.
--- NOTE | 2017-03-29 05:55 | NUR ---
PT RESTING IN BED WITH EYES CLOSED, WAKES EASILY. PT DENIES PAIN. ABLE TO TAKE PILL WITH MINIMAL ASSISTANCE. DENIES OTHER NEEDS. CALL LIGHT WITHIN REACH.
--- NOTE | 2017-03-29 08:28 | NUR ---
PT UP TO BSC, HAD SMALL SOFT BM. PT REPORTED PAIN 10/10 TO RIGHT HIP. GAVE SCHEDULED ACETAMINOPHEN. PT UP TO RECLINER, EATING BREAKFAST. SONNY SOSA IN TO SEE PT. PT TRANSFERED WITH FWW WITH 1 PERSON MINIMAL ASSIST.
--- NOTE | 2017-03-29 12:19 | NUR ---
PT SITTING UP IN RECLINER EATING LUNCH. PT ATE CHOCOLATE CAKE, BUT REPORTED THAT HIS GRILLED CHEESE SANDWICH WAS TOO HARD. DIETARY BROUGHT PT MASHED POTATOES AND GRAVY, WELL CHICKEN NOODLE SOUP. PT STATED THAT THAT WAS MUCH BETTER.
[2017-03-29] MEDS ORDERED: MAPAP325 MG PO (13:09)
[2017-03-29] MEDS ORDERED: SENNA-TIME S T1 EACH PO (13:10)
[2017-03-29] MEDS ORDERED: MIRALAX17 GM PO (13:10)
[2017-03-29] MEDS ORDERED: OXYCODONE HCL5 MG PO (13:11)
--- NOTE | 2017-03-29 13:51 | NUR ---
PT SITTING UP IN RECLINER, CHAIR ALARM ON. DENIES NEEDS AT THIS TIME.
--- NOTE | 2017-03-29 18:00 | NUR ---
PT PLEASANTLY CONFUSED. DISORIENTED TO PERSON, PLACE, EVENT, DATE. BED AND CHAIR ALARM USED THROUGHOUT SHIFT WHEN PT DID NOT HAVE A NURSING STAFF OR P.T. STAFF AT SIDE. INCISION TO RIGHT LATERAL UPPER THIGH ROMELIA, WNL. PT HAD PRN OXYCODONE 5 MG AT 1632.
--- NOTE | 2017-03-29 18:36 | NUR ---
PT HAD 650 CC OUT DURING FIRST 8 HOURS OF SHIFT. HAS HAD ONLY 100 CC URINE OUT THE PAST [address] KOLB OF DECREASED URINE OUTPUT. NO NEW ORDERS. WILL ENCOURAGE PT TO INCREASE PO FLUID INTAKE.
--- NOTE | 2017-03-29 18:41 | NUR ---
GOT PT BACK UP TO CHAIR FOR HIS SECOND DINNER, HE WAS STILL HUNGRY. CHANGED HIS LINENS AGAIN.
--- NOTE | 2017-03-29 19:00 | NUR ---
BEDSIDE REPORT RECEIVED FROM OFFGOING NURSE. PT SITTING UP IN CHAIR. CHAIR ALARM IN PLACE. CALL LIGHT WITHIN REACH.
--- NOTE | 2017-03-29 19:05 | NUR ---
PT FOUND STANDING IN ROOM NEXT TO CHAIR, CHAIR ALARM CLIP SITTING ON BEDSIDE TABLE. PT ASSISTED TO BED. BED ALARM IN PLACE. CALL LIGHT WITHIN REACH.
--- NOTE | 2017-03-29 20:15 | NUR ---
PT ASSESSMENT COMPLETE. PT ATTEMPTING TO PULL ON CATHETER BAG, PT REDIRECTED, NEW CATH SECURE PLACED. INCISION TO R HIP C/D/I. PT RATES PAIN TO R HIP 5/10, PRN PAIN MEDICATION ADMINISTERED. BED ALARM IN PLACE AFTER PT ATTEMPTING TO SIT UP ON EDGE OF BED. PT DENIES OTHER NEEDS. CALL LIGHT WITHIN REACH.
--- NOTE | 2017-03-29 21:00 | NUR ---
PT CONTINUES TO ATTEMPT TO PULL CATHETER OUT, ATTEMPTING TO GET OUT OF BED. MD NOTIFIED, SEROQUEL TO BE GIVEN WHEN ORDER IS ENTERED.CHARGE NURSE 1-ON-1 WITH PATIENT AT THIS TIME.
[2017-03-29] MEDS ORDERED: SEROQUEL25 MG PO ×2 (21:03)
--- NOTE | 2017-03-29 23:45 | NUR ---
PT CONTINUES TO WAKE INTERMITTENTLY, PULLS AT BLANKETS AND CLOTHING, ATTEMPTING TO GET HIS LEGS OUT OF BED. BED ALARM REMAINS IN PLACE. CALL LIGHT WITHIN REACH. PT DENIES PAIN OR NEEDS AT THIS TIME.
--- NOTE | 2017-03-30 01:25 | NUR ---
PT RESTLESS, PULLING AT CATHETER. PT'S ABDOMEN NOTED TO BE DISTENDED UPON EMPTYING LEG BAG. PT STATES "OW" UPON ABD PALPATION. BLADDER SCAN SHOWS ~630 ML OF URINE. LEG BAG DISCONNECTED, CATHETER DRAINED ~ 300ML OF URINE. AIR INJECTED INTO CATHETER LEG BAG, THEN LEG BAG REATTACHED TO CATHETER. CATHETER DRAINING INTO LEG BAG AT THIS TIME. ANOTHER ~ 300ML EMPTIED INTO BAG. PT STATES RELIEF, RESTING IN BED WITH EYES CLOSED AT THIS TIME.
--- NOTE | 2017-03-30 03:00 | NUR ---
PT FIDGETING IN BED. PT RATES PAIN 10/10 UPON ASSESSMENT, RUBBING HIS R SHOULDER. PRN PAIN MEDICATION ADMINISTERED. PT DENIES OTHER NEEDS. CALL LIGHT WITHIN REACH. BED ALARM IN PLACE.
--- NOTE | 2017-03-30 04:41 | NUR ---
PT REMAINS CONFUSED, DEMENTIA AT BASELINE. IMPULSIVE DURING SHIFT, ATTEMPTING TO GET UP UNASSISTED AND REMOVE CATHETER. BED ALARM/CHAIR ALARM IN PLACE. CHAMORRO DRAINING CLEAR YELLOW URINE, QS. INCSION TO R HIP C/D/I. PRN PAIN MEDICATION X 2 THIS SHIFT. NO IV ACCESS. 1 PA WITH FWW.
--- NOTE | 2017-03-30 07:52 | NUR ---
PT IN BED SLEEPING SOUNDLY. NO S/S DISTRESS OR DISCOMFORT.
--- NOTE | 2017-03-30 08:13 | OR ---
[facility] [address], [place] [address] Signed DATE OF SERVICE: 03/24/2017 PREOPERATIVE DIAGNOSIS: Valgus impacted subcapital fracture, right hip. POSTOPERATIVE DIAGNOSIS: Valgus impacted subcapital fracture, right hip. PROCEDURE: Percutaneous cannulated screw fixation. ANESTHESIA: General. SPECIMENS: None. COMPLICATIONS: None. BLOOD LOSS: Less than 50. DESCRIPTION OF PROCEDURE: The patient was taken to the operating room. After anesthesia was induced and airway secured, the patient was placed on the fracture table, and placed in mild longitudinal traction and medial rotation. AP a nd lateral fluoroscopy confirmed an acceptable reduction. The patient prepped and draped in a routine sterile fashion. About a 3-cm incision was made just at the base of the greater trochanter. Under fluoroscopic control, 3 guide pins were drilled through the lateral cortex of the neck and into the head fragment. Once we were happy with the position of the pins, they were replaced with 3 cannulated screws. Again, AP and lateral fluoroscopy showed good alignment, good position, and a stable construct. The w ound was gently irrigated, closed in standard fashion. A sterile dressing was applied, and he was awakened, taken to the recovery room in alert and stable condition. Counts were correct and antibiotic protocols were followed. MD OLI Damian/Modl /[id number] Electronically Signed By: VAHE RAUSCH MD 03/30/17 0813 PATIENT NAME: JEAN-PIERRE BENJAMIN OPERATIVE REPORT DATE OF : 38 PHYSICIAN: VAHE RAUSCH MD REPORT #: [id number] REPORT IS CONFIDENTIAL AND NOT TO BE RELEASED WITHOUT AUTHORIZATION
--- NOTE | 2017-03-30 09:09 | NUR ---
PT SITTING UP IN RECLINER, EATING BREAKFAST. DISORIENTED TO PLACE, DATE, PERSON, ORIENTED TO SURROUNDINGS AND EVENTS LEADING TO HOSPITALIZATION. REPORTED PAIN TO RIGHT HIP, "ACHES PRETTY GOOD", RATED PAIN 5/10. GAVE OXYCODONE 5 MG PO PRN. DENIED OTHER NEEDS AT THIS TIME. CHAIR ALARM ON.
--- NOTE | 2017-03-30 09:33 | NUR ---
ONE PERSON ASSIST PATIENT WITH WALKER TO BATHROOM. PATIENT UP TO CHAIR WITH FEET UP. CALL BUTTON IN REACH. CHAIR ALARM ON. CLEAN LINENS.
--- NOTE | 2017-03-30 11:10 | NUR ---
PT WORKING WITH PHYSICAL THERAPY, AMBULATING IN HALLS, TOLERATING WELL.
--- NOTE | 2017-03-30 12:10 | NUR ---
PT SITTING UPRIGHT IN RECLINER, EATING LUNCH. CHAIR ALARM ON.
--- NOTE | 2017-03-30 13:07 | NUR ---
PT UP IN RECLINER, SLEEPING SOUNDLY. CHAIR ALARM ON.
--- NOTE | 2017-03-30 14:20 | NUR ---
REPORT CALLED TO LYNDA Guevara RN AT [facility] AT 1420. QUESTIONS ASKED AND ANSWERED. JAGDISH HOWELL VERBALIZED UNDERSTANDING. INSTRUCTED JAGDISH HOWELL TO CALL FLOOR WITH ANY QUESTIONS, LYNDA AGREED.
== END 2017-03-30 14:15 | disposition home or self-care (01) | DRG 956 ==
LOC: ED 17:22 → MS 23:03 → EDBD 23:03 → MS 03-30 14:15
PROVIDERS: Orthopaedic Surgery; ADMIT Internal Medicine
PROC: 0QS604Z Reposition Right Upper Femur with Internal Fixation Device, Open Approach (ICD-10-PCS; principal; 2017-03-24 16:00)
DX: S72.011A Unspecified intracapsular fracture of right femur, initial encounter for closed fracture (principal); S37.39XA Other injury of urethra, initial encounter; G93.41 Metabolic encephalopathy; E87.1 Hypo-osmolality and hyponatremia; W19.XXXA Unspecified fall, initial encounter; E86.1 Hypovolemia; G30.1 Alzheimer's disease with late onset; F02.80 Dementia in other diseases classified elsewhere, unspecified severity, without behavioral disturbance, psychotic disturbance, mood disturbance, and anxiety; G40.909 Epilepsy, unspecified, not intractable, without status epilepticus; E78.5 Hyperlipidemia, unspecified; E03.9 Hypothyroidism, unspecified; Z78.1 Physical restraint status
CPT/HCPCS: 01220; 36415; 72131; 73502; 73700; 80048; 80053; 81001; 85025; 94762; 97110; 97116; 97163; 97530; C1713; J0330; J0690; J1170; J1650; J1885; J2270; J2274; J2405; J2704; J3010; J7030

== ENCOUNTER 2017-04-21 19:32 | Emergency (ER) | payer MEDICARE ==
[~2017-04-21] VITALS: Ht 175.3 cm; Wt 79.4 kg
[~2017-04-21 19:32] MED LIST: ARICEPT10 MG PO; ASPIR 8181 MG PO; CITALOPRAM HBR20 MG PO; LIPITOR40 MG PO; MAPAP325 MG PO; MEMANTINE HCL10 MG PO; MIRALAX17 GM PO; MULTI VITAMIN1 EACH PO; OXCARBAZEPINE300 MG PO; OXYCODONE HCL5 MG PO; SENNA-TIME S T1 EACH PO; SEROQUEL25 MG PO; SYNTHROID75 MCG PO
[2017-04-21] MEDS ORDERED: FLOMAX0.4 MG PO (20:00)
[2017-04-21] MEDS ORDERED: HYDROXYZINE PAM25 MG PO (20:02)
[2017-04-21] MEDS ORDERED: SEROQUEL25 MG PO (20:08)
--- OUTSIDE RECORDS SUMMARY | 2017-04-21 21:08 | XMS ---
Demographics + + + | Address | [address] | | | [place] [address] | + + + | Preferred Language | Unknown | + + + | Marital Status | Unknown | + + + | Sabianism Affiliation | Unknown | + + + | Race | Unknown | + + + | Ethnic Group | Unknown | + + + Author + + + | Author | [facility] | + + + | Organization | [facility] | + + + | Address | [address] | | | [place] [address] | + + + | Phone | | + + + Care Team Providers + + + + | [facility] Concierge Name | Role | Phone | + + + + Unavailable | Unavailable | + + + + PROBLEMS Unknown Problems ALLERGIES + + + + +---------+ | Substance | Reaction | Event Type | Date | Status | + + + + +---------+ | Vinod | Unknown | Non Drug | Apr, | Unknown | | | | Allergy | | | + + + + +---------+ SOCIAL HISTORY No smoking Hx information available PLAN OF CARE + +---------+ | Activity | Details | + +---------+ +---+ | | +---+ + + + | Follow Up | 4 Weeks Reason:null | + + + | Future/Pending Procedure | Bladder Scan | + + + VITAL SIGNS + + + + | Height | 69 in | 2017-04-14 | + + + + | Weight | 158.8 lbs | 2017-04-14 | + + + + | BMI | 23.45 kg/m2 | 2017-04-14 | + + + + | Temperature | 97.9 degrees Fahrenheit | 2017-04-14 | + + + + | Heart Rate | 74 /min | 2017-04-14 | + + + + | Blood pressure systolic | 129 mm Hg | 2017-04-14 | + + + + | Blood pressure diastolic | 86 mm Hg | 2017-04-14 | + + + + MEDICATIONS + + + + + + + +--------+ | Medicati | Instruct | Dosage | Frequenc | Start | End Date | Duration | Status | | on | ions | | y | Date | | | | + + + + + + + +--------+ | Citalopr | Orally | 1 tablet | 24h | | | | Active | | am 20 MG | Once a | | | | | | | | | day | | | | | | | + + + + + + + +--------+ | Macrobid | Orally | 1 | 12h | | | | Active | | 100 MG | every 12 | capsule | | | | | | | | hrs | with | | | | | | | | | food | | | | | | + + + + + + + +--------+ | Aspir-81 | Orally | 1 tablet | 24h | | | | Active | | 81 MG | Once a | | | | | | | | | day | | | | | | | + + + + + + + +--------+ | Donepezi | Orally | 1 tablet | | | | | Active | | l HCl 10 | Once a | | | | | | | | MG | day in | | | | | | | | | mornging | | | | | | | + + + + + + + +--------+ | Oxcarbaz | | | | | | | Active | | epine | | | | | | | | | 300 MG | | | | | | | | + + + + + + + +--------+ | Polyethy | | | | | | | Active | | kevin | | | | | | | | | Glycol | | | | | | | | | 3350 - | | | | | | | | + + + + + + + +--------+ | Senna | Orally | 2 | 24h | | | | Active | | 8.6-50 | Once a | tablets | | | | | | | MG | day | at | | | | | | | | | bedtime | | | | | | | | | as | | | | | | | | | needed | | | | | | + + + + + + + +--------+ | Flomax | Orally | 1 | | 08 Apr, | 4 Feb, | 30 | Active | | 0.4 MG | Once a | capsule | | 2017 | 2018 | day(s) | | | | day at | | | | | | | | | bedtime | | | | | | | + + + + + + + +--------+ | Memantin | Orally | 1 tablet | 12h | | | | Active | | e HCl 10 | Twice a | | | | | | | | MG | day | | | | | | | + + + + + + + +--------+ | Multivit | | | | | | | Active | | barroso - | | | | | | | | + + + + + + + +--------+ | Atorvast | Orally | 1 tablet | 24h | | | | Active | | atin | Once a | | | | | | | | Calcium | day | | | | | | | | 20 MG | | | | | | | | + + + + + + + +--------+ | Levothyr | Orally | 1 tablet | 24h | | | | Active | | oxine | Once a | on an | | | | | | | Sodium | day | empty | | | | | | | 75 MCG | | stomach | | | | | | | | | in the | | | | | | | | | morning | | | | | | + + + + + + + +--------+ | HydrOXYz | Intramus | 2 ml as | 6h | | | | Active | | ine HCl | cular | needed | | | | | | | 25 MG/ML | every 6 | | | | | | | | | hrs | | | | | | | + + + + + + + +--------+ | Oxycodon | Orally | 1 tablet | 6h | | | | Active | | e HCl 5 | every 6 | as | | | | | | | MG | hrs | needed | | | | | | + + + + + + + +--------+ | tylenol | Oral Q 6 | 1 tab | | | | | Active | | 650 mg | | | | | | | | + + + + + + + +--------+ | Seroquel | Orally | | 24h | | | | Active | | 12.5 | Once a | | | | | | | | | day | | | | | | | + + + + + + + +--------+ RESULTS No Results PROCEDURES + + + + + | Procedure | Date Ordered | Related Diagnosis | Body Site | + + + + + | US URINE CAPACITY | Apr 14, 2017 | | | | MEASURE | | | | + + + + + | Office Visit, Est | Apr 14, 2017 | | | | Pt., Level 3 | | | | + + + + + IMMUNIZATIONS No Known Immunizations"
[2017-04-21] MEDS ORDERED: KEFLEX500 MG PO (21:36)
== END 2017-04-21 22:12 ==
LOC: ED 19:32
DX: S00.03XA Contusion of scalp, initial encounter (principal); F03.90 Unspecified dementia, unspecified severity, without behavioral disturbance, psychotic disturbance, mood disturbance, and anxiety; N39.0 Urinary tract infection, site not specified; E78.00 Pure hypercholesterolemia, unspecified; E03.9 Hypothyroidism, unspecified; Z79.899 Other long term (current) drug therapy; W05.0XXA Fall from non-moving wheelchair, initial encounter
CPT/HCPCS: 70450; 71010; 80053; 85025; 85610; 85730; 99285

== ENCOUNTER 2017-05-10 11:53 | Emergency (ER) | payer MEDICARE ==
[~2017-05-10] VITALS: Ht 175.3 cm; Wt 79.4 kg
[~2017-05-10 11:53] MED LIST changes: +FLOMAX0.4 MG PO; +HYDROXYZINE PAM25 MG PO; +KEFLEX500 MG PO
--- NOTE | 2017-05-10 21:02 | EKG ---
[facility] [address] [facility] [place] [address] Signed Sinus rhythm with 1st degree AV block ST \T\ T wave abnormality, consider inferior ischemia Abnormal ECG No previous ECGs available Confirmed by KEELY KOLB MD ([id number]) on 05/10/2017 9:02:05 PM Electronically Signed By: KEELY KOLB MD 05/10/172101 PATIENT NAME: CASSIDYJEAN-PIERRE Electrocardiogram DATE OF : 38 PHYSICIAN: KEELY KOLB MD REPORT #: [id number] REPORT IS CONFIDENTIAL AND NOT TO BE RELEASED WITHOUT AUTHORIZATION
== END 2017-05-10 14:12 | disposition home or self-care (01) ==
LOC: ED 11:53
PROC: 0T9B70Z Drainage of Bladder with Drainage Device, Via Natural or Artificial Opening (ICD-10-PCS; principal; 2017-05-10)
DX: S00.81XA Abrasion of other part of head, initial encounter (principal); S09.90XA Unspecified injury of head, initial encounter; F03.90 Unspecified dementia, unspecified severity, without behavioral disturbance, psychotic disturbance, mood disturbance, and anxiety; E03.9 Hypothyroidism, unspecified; E78.00 Pure hypercholesterolemia, unspecified; Z87.891 Personal history of nicotine dependence; Z79.899 Other long term (current) drug therapy; Z79.82 Long term (current) use of aspirin; W18.30XA Fall on same level, unspecified, initial encounter
CPT/HCPCS: 51701; 70450; 80048; 81001; 84484; 85025; 90471; 90714; 93005; 93010; 99284; J7030

== ENCOUNTER 2017-11-16 23:29 | Emergency (ER) | payer MEDICARE ==
[~2017-11-16] VITALS: Ht 175.3 cm; Wt 79.5 kg
--- NOTE | 2017-11-17 17:18 | EKG ---
[facility] [address] [facility] [place] [address] Signed Normal sinus rhythm Minimal voltage criteria for LVH, may be normal variant Nonspecific T wave abnormality Abnormal ECG When compared with ECG of 10-MAY-2017 12:01, W[place] interval has decreased Questionable change in QRS axis QT has lengthened Confirmed by KEELY KOLB MD ([id number]) on 11/17/2017 5:18:48 PM Electronically Signed By: KEELY KOLB MD 11/17/17 1718 PATIENT NAME: CASSIDYJEAN-PIERREGIULIA JAMIL Electrocardiogram DATE OF : 38 PHYSICIAN: KEELY KOLB MD REPORT #: [id number] REPORT IS CONFIDENTIAL AND NOT TO BE RELEASED WITHOUT AUTHORIZATION
--- NOTE | 2017-11-19 10:02 | NUR ---
[facility]W set up a home visit for an assessment with patient and patient son Salty. Assessment was set up for 11/19/17 @ 10:30am. Patient son knows that [facility] and [facility] were going to come over and discuss how to help patient son Salty with [facility] and get the process started for further help for his dad who has dementia. Patient also needs a PCP. Salty called at 9:48am and cancelled the home visit assessment on the morning of 11/19/17, stated his daughter was up all night sick and would like to reschedule assessment. [facility] stated Thursday11/23/17 works fine but we could not reschedule again, his father needs a lot of help and we need to make sure we get all the services provided to him and set him up with a PCP. Rescheduled assessment for Thursday11/23/17 @ 10:30.
== END 2017-11-17 15:54 | disposition home or self-care (01) ==
LOC: ED 23:29
PROC: 0T9B70Z Drainage of Bladder with Drainage Device, Via Natural or Artificial Opening (ICD-10-PCS; principal; 2017-11-16)
DX: F03.90 Unspecified dementia, unspecified severity, without behavioral disturbance, psychotic disturbance, mood disturbance, and anxiety (principal); E03.9 Hypothyroidism, unspecified; E78.00 Pure hypercholesterolemia, unspecified; Z79.899 Other long term (current) drug therapy
CPT/HCPCS: 51701; 70450; 71045; 80053; 81001; 84484; 85025; 93005; 93010; 99284; G0480

== ENCOUNTER 2017-12-09 13:47 | Emergency (ER) | payer MEDICARE ==
[~2017-12-09] VITALS: Ht 175.3 cm; Wt 79.5 kg
== END 2017-12-09 15:16 | disposition home or self-care (01) ==
LOC: ED 13:47
DX: F03.90 Unspecified dementia, unspecified severity, without behavioral disturbance, psychotic disturbance, mood disturbance, and anxiety (principal); E03.9 Hypothyroidism, unspecified; E78.00 Pure hypercholesterolemia, unspecified; Z79.899 Other long term (current) drug therapy
CPT/HCPCS: 99283